=== PATIENT | female | born 1960 | race Caucasian/White ===

== ENCOUNTER 2022-10-19 20:51 | Emergency (ER) | payer OTHER, SELFPAY ==
[2022-10-19 20:52] VITALS: PULSE 133; RESP 19; TEMP 37.1; O2SAT 100; BMI 27.8
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
[2022-10-19 21:48] LABS: Absolute Lymphocyte Count 3.82 X10^3/uL (0.83-4.51); Absolute Neutrophil Count 4.8 X10^3/uL (2.0-7.7); Basophil# 0.04 X10^3/uL; Basophil% 0.4 % (0-1); Eosinophil# 0.14 X10^3/uL; Eosinophils% 1.5 % (0-5); Hematocrit 44.8 % (37-47); Lymphocyte # 3.82 X10^3/ul (0.83-4.51); Lymphocyte % 40.1 % (19-41); Mean Corp Hgb Conc 33.5 g/dL (32-36); Mean Corpuscular Hgb 28.6 pg (27.0-32.0); Mean Corpuscular Volume 85.3 fL (81-99); Mean Platelet Vol. 9.6 fl (6.2-12.0); Monocyte# 0.73 X10^3/uL; Monocyte% 7.7 % (0-10); NRBC Flagged by Analyzer 0 % (0-5); Neutrophil # 4.78 X10^3/uL (2.7-7.7); Neutrophil % 50.1 % (47-70); Platelet Count 386 K/mm3 (150-450); RBC Distribution Width CV 13.7 % (11.6-14.6); RBC Distribution Width SD 42.5 fl (35.1-43.9); Red Blood Count 5.25 M/mm3 (4.2-5.4); White Blood Count 9.5 K/mm3 (4.4-11.0)
[2022-10-19] MEDS: Ondansetron 4 MG/2 ML Vial IV (22:00)
[2022-10-19 22:02] LABS: Alcohol, Blood (Medical)-Serum < 3.0 mg/dL
[2022-10-19] MEDS: LORazepam 2 MG/ML Syringe 1 MG IV (22:02)
[2022-10-19 22:09] LABS: ALB/GLOB Ratio 1.4 RATIO (0.9-2.4); AST(SGOT) 23 U/L (15-37); Alanine Aminotransfer ALT/SGPT 28 U/L (13-56); Albumin, Serum 4.5 g/dL (3.2-5.0); Alkaline Phosphatase 83 U/L (45-117); Anion Gap 11 (5-15); BUN 15 mg/dL (7-18); BUN/Creat Ratio 11.3 RATIO (10-20); Calcium,Total 10.1 mg/dL (8.5-10.1); Chloride 105 mmol/L (98-107); Creatinine, Serum 1.33 mg/dL (0.55-1.02); EST Glomerular Filtration Rate 43 mL/min (>60); Est Glom Filt Rate - Afr Amer 52 mL/min (>60); Estimated Creatinine Clearance 34.69 ml/min; Globulin 3.3 g/dL (2.2-4.2); Glucose 129 mg/dL (74-106); Potassium 3.1 mmol/L (3.5-5.1); Protein, Total 7.8 g/dL (6.4-8.2); Sodium Level 142 mmol/L (136-145); Troponin-I HS 12 pg/mL (3.0-54.0)
[2022-10-19 22:29] LABS: Amphetamine Urine VISTA NEGATIVE (<1000 ng/mL); Barbiturate Urine VISTA NEGATIVE (< 200 ng/mL); Benzodiazepine Urine VISTA NEGATIVE (< 200 ng/mL); Cocaine Urine VISTA NEGATIVE (< 300 ng/mL); Ecstacy Urine VISTA NEGATIVE (< 500 ng/mL); Methadone Urine VISTA NEGATIVE (< 300 ng/mL); PCP Urine VISTA NEGATIVE (< 25 ng/mL); THC Urine VISTA NEGATIVE (< 50 ng/mL); Vista UDS pH Range 5
[2022-10-19 22:35] LABS: Bacteria 0 SEEN /hpf (None Seen); Red Blood Cells-Urine 0 SEEN /hpf (0-5); Squamous Epithelial Cells - UA 0 SEEN /hpf (5-10)
[2022-10-19 22:38] LABS: Color, Urine Yellow (Yellow); Glucose, Dipstick Normal (Normal); Ketone-Dipstick 5 mg/dl (Negative); Leukocyte Esterase-Dipstick 25 /ul (Negative); Nitrite-Dipstick Negative (Negative); Occult Blood-Urine 10 /ul (Negative); Protein-Dipstick 30 mg/dl (Negative); Urine Clarity Clear (Clear); Urine Urobilinogen 1 mg/dl (Normal)
[2022-10-19 22:44] LABS: Urine Bilirubin Dipstick 1 mg/dL (Negative)
[2022-10-19 22:45] LABS: Hyaline Cast 25-50 SEEN /lpf (0-5); Mucous, Urine 2+ /hpf (<or=2+); White Blood Cells 0-5 SEEN /hpf (0-5)
[2022-10-19 22:57] LABS: Procalcitonin < 0.04 ng/mL (0.00-0.09)
[2022-10-19 23:08] LABS: Prolactin 88.6 ng/mL
[2022-10-19] MEDS: 0.9% Normal Saline 1,000 ML 999 ML IV (23:13)
[2022-10-19] MEDS: Potassium Chloride Oral Tablet 20 MEQ 40 MEQ PO (23:15)
[2022-10-20 00:34] VITALS: BP 135/64; PULSE 87; RESP 17; O2SAT 96
== END 2022-10-20 00:35 | disposition home or self-care (01) ==
PROVIDERS: Emergency Provider Emergency Medicine; PCP Internal Medicine; Visit Provider Emergency Medicine
DX: S06.0X0A Concussion without loss of consciousness, initial encounter (principal); E87.6 Hypokalemia; W18.11XA Fall from or off toilet without subsequent striking against object, initial encounter; R31.9 Hematuria, unspecified; G44.309 Post-traumatic headache, unspecified, not intractable; Z79.899 Other long term (current) drug therapy
CPT/HCPCS: 70450; 80053; 80307; 81001; 82077; 84145; 84146; 84484; 85025; 93005; 96361; 96374; 96375; 99285; J7030; A4216; J2405